=== PATIENT | male | born 1980 ===

== ENCOUNTER → 2020-10-25 14:39 | Outpatient (CLI) | payer OTHER, SELFPAY ==
--- NOTE | 2020-10-25 | DI.ECHO.S_ITS ---
[place] [facility] +---------+ : : [address] : [address] : : : : [id number] : : : : Phone: [phone]+ Echocardiogram Report + + :Name: ALLA STAFFORD Study Date: 10/25/2020 Height: 71 in : :[facility] ReadingLocation: Weight: 240 lb : : Gender: Male BSA: 2.3 m2 : :: 1980 Age: 40 yrs BP: 132/70 mmHg: :Reason For Study: ENCOUNTER FOR GENERAL ADULT MEDICAL : :EXAMINATION : :Ordering Physician: NEGRITA, : :VALDEMAR Performed By: Lita Rao : :Referring: VALDEMAR REES : + + Interpretation Summary 1) Normal left ventricular thickness, size, wall motion, and systolic function (EF 60-65%). 2) Mildly enlarged right ventricular size with normal function. 3) No significant valvular abnormalities. 4) No prior Echo available for comparison. Procedure: A two-dimensional transthoracic echocardiogram with color flow and Doppler was performed. The study quality was technically difficult. There is no prior echocardiogram noted for this patient. The patient was in sinus rhythm with heart rates between 58-84 bpm during the exam. Left Ventricle: The left ventricle is normal in size and wall thickness. The ejection fraction is estimated to be 60-65%. Left ventricular systolic function appears normal without focal wall motion abnormalities. Diastolic parameters suggest probable normal left ventricular diastolic function and normal filling pressures. Right Ventricle: The right ventricle is mildly dilated. The right ventricular systolic function is normal. Atria: Both atria are normal in size. There is no Doppler evidence for an interatrial shunt. Mitral Valve: The mitral valve is normal in structure and function. There is trace mitral regurgitation. Aortic Valve: The aortic valve is not well visualized. The aortic valve is grossly normal. There is no aortic valve stenosis. No aortic regurgitation is present. Tricuspid Valve: The tricuspid valve is normal in structure and function. There is trace tricuspid regurgitation. Pulmonary artery pressures cannot be estimated because of the lack of a measurable TR jet velocity but the IVC suggests a CVP of around 3 mmHg. Pulmonic Valve: The pulmonic valve leaflets are thin and pliable; valve motion is normal. There is trace pulmonic regurgitation. Great Vessels: The aortic root is normal size. The dimensions of the ascending aorta are normal. The IVC is of normal diameter and collapses greater than 50% with a sniff. This suggests a low right atrial pressure of 3 mm Hg. Pericardium/ Pleura There is no pericardial effusion. There is no pleural effusion. MMode/2D Measurements & Calculations LVIDd: 4.7 cm LVOT diam: 2.0 cm LVIDs: 3.1 cm Ao root diam: 3.3 cm FS: 34.5 % asc Aorta Diam: 2.7 cm EPSS: 0.81 cm Ao Arch Diam (Prox Trans): 2.7 cm IVSd: 0.98 cm LVPWd: 0.87 cm LV cárdenas. diameter/BSA (cm/m^2): 2.0 LV sys. diameter/BSA (cm/m^2): 1.3 LA A2 area: 15.3 cm2 RA long axis: 5.4 cm LA A4 area: 18.5 cm2 RA area: 19.4 cm2 LA length (vol): 5.6 cm RA vol: 59.6 ml LA vol: 43.0 ml RA : 26.2 ml/m2 LA vol index: 18.9 ml/m2 IVC diam: 1.6 cm RVD1 (basal): 4.1 cm TAPSE: 2.4 cm Doppler Measurements & Calculations Ao V2 max: 96.2 cm/sec LVOT Max Rajan: 80.0 cm/sec Ao V2 mean: 68.5 cm/sec LV V1 max P.6 mmHg Ao max P.7 mmHg LV V1 VTI: 17.3 cm Ao mean P.1 mmHg TIFFANY(I,D): 2.9 cm2 Ao V2 VTI: 18.6 cm TIFFANY(V,D): 2.6 cm2 sev ratio: 0.93 TIFFANY indexed to BSA (cm^2/m^2): 1.3 MV E max rajan: 68.1 cm/sec PA V2 max: 81.9 cm/sec MV A max rajan: 77.3 cm/sec PA V2 mean: 55.3 cm/sec MV E/A: 0.88 PA mean P.4 mmHg Med Peak E' Rajan: 8.4 cm/sec PA pr(Accel): 31.0 mmHg E/E' med: 8.1 Lat Peak E' Rajan: 7.1 cm/sec E/E' lat: 9.6 E/e' average: 8.9 MV dec time: 0.25 sec SV(LVOT): 54.0 ml Reading Physician:05:08 PM
== END ==
PROVIDERS: Referring Provider Orthopaedic Surgery; Visit Provider Physician Assistant
DX: Z00.00 Encounter for general adult medical examination without abnormal findings (principal)
CPT/HCPCS: 93306